=== PATIENT | male | born 1960 | race Caucasian/White ===

== ENCOUNTER 2018-07-14 23:09 | Observation (INO) ==
[2018-07-15] MEDS ORDERED: Aspirin 81 MG TAB.CHEW PO STA
[2018-07-15 00:05] LABS: Prothrombin Time 11.1 Seconds (9.4-12.1)
--- NOTE | 2018-07-15 00:12 | Emergency Department Note ---
Disposition Clinical Impression: Chest pain Qualifiers: Chest pain type: unspecified Qualified Code(s): R07.9 - Chest pain, unspecified Disposition: Admitted As Inpatient Condition: Serious Reasons to Return/Additional Instructions: Your EKG shows that you have heart disease. We are unable to rule out heart attack within the emergency department because we have not been able unable to do further testing. You are welcome to return to the emergency department at any point. General Adult HPI - General Chief complaint: ED Arrhythmia/Palpitations Stated complaint: HTN, Just dont Feel well Time Seen by Provider: 07/14/18 23:43 Source: patient Limitations: no limitations Nursing Notes Reviewed: Yes Vital Signs Reviewed: Yes - History of Present Illness HPI Narrative: Patient is emergency department today for evaluation of chest pain. Sent from work. Palpitations and service chest with left shoulder pain and neck pain. Better with rest. 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 Patient states that he is a "bad patient". Patient states that he does not want to stay in the hospital. Patient does have EKG changes in the inferior leads of depressions and T-wave inversions. He has depression of half millimeter in V2 and V3. Patient has no ST elevations. Patient will require further admission for cardiac evaluation. Blood work is pending. Pain Scale: 0 - Related Data Home Medications Medication Instructions Recorded Confirmed Tadalafil [Cialis] 5 mg PO AD PRN 04/20/16 07/18/16 Previous Rx's Medication Instructions Recorded Cyclobenzaprine [Flexeril] 10 mg PO TID #15 tablet 07/18/16 methylPREDNISolone [Medrol] 4 mg PO TAPER #21 tablet 07/18/16 HYDROcodone/Acet 10/325 mg [[place] 1 each PO Q6HR PRN #14 tablet 07/20/16 10-325 mg] Azithromycin [Azithromycin 6-Tab 250 mg PO DAILY #4 tab 10/02/17 Pack] Allergies Allergy/AdvReac Type Severity Reaction Status Date / Time No Known Allergies Allergy Verified 07/20/16 09:38 Review of Systems: CONSTITUTIONAL: No weight loss, fever, chills, weakness or fatigue. HEENT: Eyes: No visual changes. Ears, Nose, Throat: No hearing loss, difficulty talking or unable to swallow. SKIN: No rash or itching. CARDIOVASCULAR: Chest palpitations with associated shoulder and neck pain that all resolved with rest. RESPIRATORY: No shortness of breath, cough or sputum. GASTROINTESTINAL: No anorexia, nausea, vomiting or diarrhea. No abdominal pain or blood. GENITOURINARY: No burning on urination or hematuria. NEUROLOGICAL: No headache, dizziness, syncope, paralysis, ataxia, numbness or tingling in the extremities. No change in bowel or bladder control. All systems ED: reviewed and negative except as stated. Past Medical History - Past Medical History Medical history: Reports: diabetes, hypertension Surgical history: Reports: appendectomy Psychiatric history: Reports: no psych history - Social History Smoking Status: Current every day smoker Smokeless Tobacco Status: No Alcohol use: Reports: none Drug use: Reports: none Physical Exam General: Well appearing, nontoxic, no acute distress Head: Normocephalic Atraumatic Eyes: PERRL, EOMI ENT: Airway patent, no stridor Neck: supple, no meningismus Chest: Lungs clear to auscultation bilateral Cardiac: Regular rate and rhythm, no murmurs, rubs or gallops Abdomen: soft, nontender, nondistended; no guarding, rebound, or tenderness to percussion Musculoskeletal: Calves symmetric, nontender, no palpable cord Skin: No rash, normal skin tone Neuro: Alert and Oriented to person, place, and time; No focal deficit - General Limitations: no limitations General appearance: alert Course Course Narrative: I did discuss his case with his present over the phone. They were all made very aware of his acute EKG changes and very concerning story of chest pain. Patient is will further discuss. Patient still adamant that he does not want to come into the hospital. He also seems to understand that I cannot rule out an acute heart attack during a 2 hour stay in the hospital. Chest pain started hour prior to arrival and her troponin needs to be repeated about 6 hours after chest pain onset in order to adequately rule out NSTEMI. - Reevaluation(s) Reevaluation #1: Blood work is unremarkable. The troponin is negative. Patient will need repeat troponin to further rule out an STEMI. EKG changes show that he does have underlying cardiac disease. Patient would benefit from further evaluation within the hospital. Patient refusing admission at this time. Patient signing out AMA. He does understand that we have diagnosed cardiac disease. We have not ruled out heart attack. He could go home and from this cardiac event today. Worse he could have a debilitating cardiomyopathy or even a potential stroke. These disabilities would be nonreversible. Patient states that he completely understands but does not want to undergo further admission and further testing. Patient does not want to incur any further healthcare costs. He has been notified that the cost of a bad outcome from this would be much more expensive than the inpatient admission. Patient's life and well-being are at risk. Patient still refusing admission. Reevaluation #2: On having the patient signed his AMA paperwork he states that he is willing to stay overnight for further workup. AMA paperwork has been attached to the chart as I do not know how long he is actually willing to stay. At a minimum he can have repeat troponins to rule out NSTEMI. This would significantly decrease his overall risk. We will discuss with the hospitalist for further treatment. - Consultations Consultation #1: Discussed with hospitalist. Patient accepted for admission. Vital Signs Temperature 97.9 F 07/14/18 23:15 Pulse Rate 90 07/14/18 23:15 Respiratory Rate 20 07/14/18 23:15 Blood Pressure 183/106 07/14/18 23:15 O2 Sat by Pulse Oximetry 96 07/14/18 23:15 Temperature 97.9 F 07/14/18 23:15 Pulse Rate 90 07/14/18 23:15 Respiratory Rate 20 07/14/18 23:15 Blood Pressure 183/106 07/14/18 23:15 O2 Sat by Pulse Oximetry 96 07/14/18 23:15 Oxygen Delivery Oxygen Delivery Room Air
[2018-07-15 00:18] LABS: BUN/Creatinine Ratio 14 (6-26); Blood Urea Nitrogen 13 mg/dL (6-20); Calcium 9.7 mg/dL (8.6-10.3); Carbon Dioxide 26 mEq/L (23-29); Chloride 103 mEq/L (98-107); Glucose 127 mg/dL (70-105); Osmolality,Calculated 282 (280-300); Potassium 3.8 mEq/L (3.5-5.1); Sodium 135 mEq/L (136-145); Troponin I < 0.03 ng/mL (< 0.04); eGFR For Non-African Americans > 60 (> 60)
[2018-07-15 00:25] LABS: Basophils # 0.1 K/mcL (0.0-0.2); Basophils % 0.7 %; Eosinophils # 0.2 K/mcL (0.0-0.6); Eosinophils % 1.9 %; Hematocrit 44.3 % (37.5-50.1); Hemoglobin 14.9 g/dL (12.9-16.9); Immature Granulocytes % 0.5 % (0-4); Lymphocytes # 4.3 K/mcL (0.6-4.6); Lymphocytes % 41.4 %; Mean Corpuscular HGB Conc 33.6 g/dL (31.6-35.5); Mean Corpuscular Hemoglobin 29.7 pg (28.0-33.3); Mean Corpuscular Volume 88.2 fL (83.0-100.0); Mean Platelet Volume 12.5 fL (9.4-12.4); Monocytes # 0.6 K/mcL (0.0-1.3); Monocytes % 5.7 %; Neutrophils # 5.2 K/mcL (1.6-8.9); Platelet Count 214 K/mcL (140-400); Red Blood Count 5.02 M/mcL (4.19-5.50); Red Cell Distribution Width 13.2 % (11.5-14.5); Segmented Neutrophils % 49.8 %
[2018-07-15] MEDS ORDERED: Naloxone 0.4 MG/ML INJ IVP PRN (03:49)
[2018-07-15] MEDS ORDERED: Acetaminophen 325 MG TABLET PO PRN (03:49)
--- NOTE | 2018-07-15 03:56 | Internal Med History&Physical ---
Date of Encounter: 07/15/18 Time of Encounter: 03:30 Internal Medicine - H&P: HPI Chief complaint: palpitations; chest pain Admitted From: Emergency Dept Plans for Post Hospital Care: Home History of present illness: Mr. Florence is a 57 year old male who presents to the ER tonight from work as advised by the nurse at his employer's office. 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 His coworkers noticed him and encouraged him to see the nurse. Because of symptoms and concern for cardiac disease, the nurse at work recommended he go to the ER. In the ER, he had workup performed including EKG which noted some subtle changes. Patient was reluctant to be admitted and was going to sign out AMA. However, he then later agreed to stay in the hospital for further workup and testing. Upon my assessment of the patient, he is chest pain-free. He denies any palpitations or fluttering now. Patient admits that he is a noncompliant patient. He has a history of borderline diabetes. He also has a history of sleep apnea but refuses to wear CPAP mask. He smokes 1 pack per day for many years. He is unaware of his cholesterol profile. Family history is negative for heart disease, however. Past Med Surg Social Fam HX - Past Medical History Attestation: Yes The following information was validated with the patient. Source: patient, old records reviewed Medical history: diabetes, hypertension Additional medical history: aortic regurgitation Psychiatric history: no psych history - Past Surgical History Surgical History: appendectomy Additional surgical history: testicle torsion - Social History Smoking Status: Current every day smoker Smokeless Tobacco Status: No Alcohol use: none Drug use: none Current living situation: Home, With Family Activity Level: Independent ambulation Recent Out of Country Travel Within the Last 8 Weeks: No - Family History Father Hx Family Endocrine Disorder: Yes Internal Medicine - H&P: Meds No Known Home Drugs 07/15/18 [History] Allergy/AdvReac Type Severity Reaction Status Date / Time No Known Allergies Allergy Verified 07/20/16 09:38 - Constitutional Constitutional: no chills, no fever(s) - EENT Eyes: no blurry vision, no change in vision Ears: no ear pain, no tinnitus Nose, mouth and throat: no mouth pain, no sinus pain, no sinus pressure - Cardiovascular Cardiovascular ROS IM: chest pain, diaphoresis, palpitations, no dyspnea, no dyspnea on exertion, no lightheadedness, no syncope - Respiratory Respiratory: no cough, no hemoptysis, no chest congestion, no excessive phlegm production, no change in phlegm color - Gastrointestinal Gastrointestinal: no abdominal pain, no diarrhea, no hematemesis, no hematochezia, no melena, no nausea, no vomiting - Genitourinary Genitourinary ROS male: no dysuria, no flank pain, no hematuria - Musculoskeletal Musculoskeletal ROS IM: no arthralgias, no back pain - Integumentary Integumentary IM: no rash, no jaundice - Neurological Neurological ROS: no dizziness, no focal weakness, no frequent falls, no headache(s) - Psychiatric Psychiatric: no anxiety, no depression - Endocrine Endocrine IM: no polydipsia, no polyuria - Allergic/Immunologic Allergic/Immunologic: no wheezing, no GI upset with certain foods - Constitutional Vitals: Temp Pulse Resp BP Pulse Ox 97.9 F 90 20 183/106 96 07/14/18 23:15 07/14/18 23:15 07/14/18 23:15 07/14/18 23:15 07/14/18 23:15 General appearance: Present: cooperative, no acute distress, answers questions appropriately Exam: see below - Head Head exam: Present: normal inspection - Eye Eye exam: Present: EOMI, PERRL. Absent: scleral icterus Pupils: Present: normal accommodation - ENT ENT exam: Present: mucous membranes dry, normal exam, normal oropharynx - Neck Neck exam general surgery: Present: full ROM, supple. Absent: tenderness, nuchal rigidity, thyromegaly - Respiratory Respiratory exam: Present: CTAB. Absent: chest wall tenderness, rales, rhonchi, wheezes - Cardiovascular Cardiovascular exam: Present: RRR, +S1, +S2, systolic murmur (grade 3/6 type murmur). Absent: diastolic murmur - GI/Abdominal GI/Abdominal exam: Present: normal bowel sounds, soft. Absent: hepatomegaly, mass, splenomegaly - Extremities Exam Extremities exam: Present: full ROM, normal capillary refill, warm, radial pulses palpable and symmetrical. Absent: calf tenderness, pedal edema, tenderness - Back Exam Back exam: Absent: CVA tenderness (L), CVA tenderness (R) - Neurological Exam Neurological exam: Present: alert, CN II-XII intact, oriented X3, no focal deficits - Psychiatric Psychiatric exam: Present: normal affect, normal mood - Skin Skin exam: Present: dry, intact, warm Internal Med - H&P Results - Labs CBC & Chem 7: 07/14/18 23:43 07/14/18 23:43 Labs: Short CBC 07/14/18 Range/Units 23:43 WBC 10.5 (4.3-11.1) K/mcL Hgb 14.9 (12.9-16.9) g/dL Hct 44.3 (37.5-50.1) % Plt Count 214 (140-400) K/mcL Neutrophils # 5.2 (1.6-8.9) K/mcL BMP 07/14/18 23:43 Sodium 135 L Potassium 3.8 Chloride 103 Carbon Dioxide 26 BUN 13 Creatinine 0.92 Glucose 127 H Calcium 9.7 Cardiac Enzymes 07/14/18 Range/Units 23:43 Troponin I < 0.03 (< 0.04) ng/mL - EKG Data -: EKG Interpreted by Myself - EKG Data Prior EKG available for review: no EKG comments: 07/15/18 04:04 NSR; subtle ST-T depression anteriorly; old inferior WA - Impressions ITS Impressions Chest X-Ray 07/14/18 23:20 IMPRESSION: No acute cardiopulmonary disease. D/ / Cheng Gomez MD / Cheng Gomez MD Interpreting Provider: Cheng Gomez MD - Diagnostic Studies Chest x-ray Status: image reviewed by me (negative) - Assessment and plan (1) Palpitations Current Visit: Yes Status: Acute Assessment and plan: 1. Will monitor on telemetry. 2. Will trend troponins, EKG's, and electrolytes. 3. Will order ECHO to evaluate murmur -- strongly suspect aortic stenosis. (2) Chest pain Current Visit: Yes Status: Acute Assessment and plan: 1. Work-up as above. 2. Need to review ECHO to rule out severe before considering stress test. I would not recommend stress testing in the setting of severe aortic stenosis. Patient may need cardiology consultation if that is the case. Qualifiers: Chest pain type: precordial pain Qualified Code(s): R07.2 - Precordial pain (3) DVT prophylaxis Current Visit: Yes Status: Acute Assessment and plan: 1. Heparin SQ.
[2018-07-15 05:46] LABS: Troponin I < 0.03 ng/mL (< 0.04)
[2018-07-15 05:55] LABS: Alanine Aminotransferase 25 Units/L (7-52); Albumin 3.9 g/dL (3.5-5.7); Albumin/Globulin Ratio 1.3 (1.1-2.2); Alkaline Phosphatase 60 Units/L (34-104); Aspartate Amino Transferase 21 Units/L (13-39); BUN/Creatinine Ratio 15 (6-26); Bilirubin,Total 0.3 mg/dL (0.3-1.0); Blood Urea Nitrogen 12 mg/dL (6-20); Calcium 9.1 mg/dL (8.6-10.3); Carbon Dioxide 25 mEq/L (23-29); Chloride 104 mEq/L (98-107); Chol/HDL Ratio 7.3 (0-4.9); Cholesterol 176 mg/dL (< 200); Glucose 172 mg/dL (70-105); HDL Cholesterol 24 mg/dL (40-59); LDL Cholesterol,Calculated 74 mg/dL (0-99); Magnesium 2.1 mg/dL (1.6-2.6); Osmolality,Calculated 286 (280-300); Potassium 3.6 mEq/L (3.5-5.1); Sodium 136 mEq/L (136-145); Total Protein 6.9 g/dL (6.4-8.9); Triglycerides 389 mg/dL (< 150); eGFR For Non-African Americans > 60 (> 60)
[2018-07-15] MEDS ORDERED: *HR* Heparin 5,000 UNIT/ML VIAL SQ SCH (06:00)
[2018-07-15] MEDS ORDERED: Perflutren Lipid Microsphere 1.3 ML in 0.9 % Sodium Chloride 8.7 ML IVP ONE (13:37)
[2018-07-15 16:15] VITALS: BP 166/90
--- NOTE | 2018-07-15 16:20 | Discharge Summary ---
- NOTES TO OUTPATIENT PROVIDER Notes to Outpatient Provider: f/u with cardiology within a week for holter to r/o arrhythmia Orders not resulted at time of discharge: Pending orders 07/14/18 23:21 ECG 12 lead ECG [ECG] Stat 07/14/18 23:24 ECG 12 lead ECG [ECG] Stat 07/15/18 06:00 ECG 12 lead ECG [ECG] AM 0600 Date of Encounter: 07/15/18 Time of Encounter: 16:18 - Discharge Diagnosis (1) DVT prophylaxis Priority: Primary Status: Acute (2) Chest pain Priority: Primary Status: Acute Qualifiers: Chest pain type: precordial pain Qualified Code(s): R07.2 - Precordial pain (3) Palpitations Priority: Primary Status: Acute Hospital course: Mr. Florence is a 57 year old male who presents to the ER tonight from work as advised by the nurse at his employer's office. 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 His coworkers noticed him and encouraged him to see the nurse. Because of symptoms and concern for cardiac disease, the nurse at work recommended he go to the ER. He was admitted for further evaluation. EKG revealed possible prior inferior wall infarction. Labs revealed dyslipidemia with low HDL. Troponin was negative 3. He underwent an echocardiogram, which revealed ejection fraction 65-70%, normal LV chamber size, wall thickness and function, Mild to moderate aortic stenosis. Patient was counseled on cardiac risks factors modification including control blood pressure, weight, and a lipid. Patient will be followed up with cardiology within a week for Holter monitor. Discharge discussed with: patient, family Time spent discussing smoking cessation with patient: more than 10 minutes - Time Spent with Patient Total time spent providing and/or coordinating discharge services: Greater than 30 minutes - Discharge Medications Home Medications: No Known Home Drugs 07/15/18 [History] Allergies/Adverse Reactions: Allergy/AdvReac Type Severity Reaction Status Date / Time No Known Allergies Allergy Verified 07/15/18 15:14 Date of admission: 07/15/18 02:14 Primary care physician: Jing Gonzalez MD Anticipated date of discharge: 07/15/18 - Constitutional Vitals: Temp Pulse Resp BP Pulse Ox 98.2 F 84 16 166/90 95 07/15/18 16:13 07/15/18 16:13 07/15/18 16:13 07/15/18 16:13 07/15/18 16:13 General appearance: Present: cooperative, A&O X 3, no acute distress, answers questions appropriately Exam: PHYSICAL EXAMINATION: GENERAL APPEARANCE: The patient is alert, oriented and in no acute distress. HEENT: Head is normocephalic. The sinuses are nontender. Pupils are equal and reactive. The nares are patent. Oropharynx clear without lesions. NECK: Supple without lymphadenopathy. HEART: Regular rate and rhythm. LUNGS: No crackles or wheezes are heard. ABDOMEN: Soft, nontender, nondistended with good bowel sounds heard. Inguinal area is normal. EXTREMITIES: Without cyanosis, clubbing or edema. NEUROLOGICAL: Gross nonfocal. SKIN: Warm and dry without any rash. - Patient Status Disposition: Home, Self-Care Condition: Serious Functional capacity at discharge: independent ambulation Overall status at discharge: patient is progressing back to baseline - Discharge Instructions Follow Up With: Jing Gonzalez MD [Primary Care Provider] - (Please call [phone] to schedule follow up appointment for 7-10 days from date of discharge. ) - Diet and Activity Activity: increase activity as tolerated Diet: low fat, low cholesterol, low salt diet
[2018-07-16] MEDS ORDERED: Aspirin 81 MG TAB.CHEW PO SCH (09:00)
--- NOTE | 2018-07-17 17:54 | Electrocardiograph Report ---
[place] [id number] Test Date: 2018-07-14 Pat Name: Sidney Florence Department: 104 Room: 3B Gender: M [employer] Data Modeler: CLIFTON : 1960 Requested By: Jose Snyder Order Number: [id number] Reading MD: Monique Acosta Measurements Intervals [place] Rate: 86 P: 61 NE: 174 QRS: 41 QRSD: 106 T: 4 QT: 356 QTc: 399 Interpretive Statements SINUS RHYTHM Electronically Signed On 07-17-2018 17:52:54 EST by Monique Acosta
== END 2018-07-15 14:40 | disposition home or self-care (01) ==
LOC: EMEROOARM 23:09 → 3BNU 23:09
PROVIDERS: ADMIT Internal Medicine; ATTEND Internal Medicine